=== PATIENT | female | born 1980 | race Caucasian/White ===

== ENCOUNTER 2020-10-03 00:25 | Emergency (ER) | payer OTHER, SELFPAY ==
[2020-10-03 00:34] VITALS: BP 128/88; PULSE 92; RESP 18; TEMP 37; O2SAT 98
--- NOTE | 2020-10-03 01:10 | DI.RAD.S_ITS ---
PROCEDURE: XR CHEST 2V INDICATIONS: cough TECHNIQUE: 2 views of the chest were acquired. COMPARISON: [facility], , CHEST 2 VIEW, 01/14/2011, 9:58. FINDINGS: Surgical changes and devices: None. Lungs and pleura: Lungs are clear. No pleural effusions or pneumothorax. Mediastinum: Mediastinal contours are normal. Heart size is normal. Bones and chest wall: No suspicious bony abnormalities. Soft tissues appear unremarkable. IMPRESSION: No acute disease. Dictated by: Neri Gonzalez M.D. on 10/03/2020 at 8:32 Approved by: Neri Gonzalez M.D. on 10/03/2020 at 8:34
--- NOTE | 2020-10-03 01:11 | PC.NURSE ---
after discussing plan of care with pt after triage pt states she would like to move forward with the discussed chest xr but would like to decline further testing r/t concern for cost
[2020-10-03 04:51] LABS: COVID19 -Nasal RAPID Negative (Negative)
--- NOTE | 2020-10-03 05:00 | ED.GENADULT ---
HPI - General Adult General Chief complaint: Shortness of Breath/Dyspnea Stated complaint: thinks pneumonia/coughing Time Seen by Provider: 10/03/20 03:25 Source: patient Mode of arrival: Ambulatory History of Present Illness HPI narrative: 40-year-old woman with no significant medical history presents with 3 days of cough, chest pressure, shortness of breath when lying flat, lightheaded she has had slight diarrhea for 2 days mild nausea no appetite but describes no fevers. She does not have a history of asthma and does not report wheezing. No significant history of seasonal allergies. She does not describe a change to taste or smell nor palpitations or lower extremity edema. Related Data Allergies Allergy/AdvReac Type Severity Reaction Status Date / Time No Known Drug Allergies Allergy Unverified 07/25/20 12:06 Review of Systems Review of Systems Narrative: Remainder of complete review of systems is otherwise unremarkable except for that included in the HPI. Patient History Surgical History Status post appendectomy Status post cholecystectomy Status post loop electrosurgical excision procedure (LEEP) of cervix (05/12/14) Status post tonsillectomy and adenoidectomy Status post tubal ligation Family History Child ADHD (attention deficit hyperactivity disorder) Mother Hypertension Social History Smoking Status: Former smoker Smoking Status: Former smoker Exam Narrative Exam Narrative: General: Healthy appearing, in no acute distress. Able to give a complete and coherent history. Well-nourished well-developed HEENT: Moist mucous membranes, normal sclera with reactive pupils, Neck: No JVD, supple Respiratory: Lungs are clear to auscultation, no wheezing no rales no rhonchi. Full and symmetrical air movement Cardiac: Regular rate and rhythm no murmurs no bruits Abdomen: Soft, nontender, good bowel tones, no flank pain Skin: Warm and dry, no rashes Neurologic: Grossly neurologically intact with no obvious asymmetries or abnormalities Extremities: No trauma, well perfused Psych: Cooperative, appropriate insight and affect Initial Vital Signs Initial Vital Signs: Vital Signs Temperature 98.6 F 10/03/20 00:34 Pulse Rate 92 H 10/03/20 00:34 Respiratory Rate 18 10/03/20 00:34 Blood Pressure 128/88 10/03/20 00:34 Pulse Oximetry 98 10/03/20 00:34 Course Orders Ordered: ED Orders 10/03/20 01:10 Chest [XR chest 2V] Stat 10/03/20 03:40 COVID19 -Nasal swab/Pre-Proc Stat Vital Signs Vital signs: Vital Signs - 8 hr 10/03/20 00:34 Temperature 98.6 F Pulse Rate 92 H Respiratory Rate 18 Blood Pressure 128/88 Pulse Oximetry 98 Medical Decision Making Medical Records Medical records reviewed: Yes I reviewed the patient's medical records. Lab Data Lab results reviewed: Yes I reviewed the patient's lab results. Labs: Lab Results 10/03/20 Range/Units 03:40 SARS-CoV-2 (PCR) Negative (Negative) MDM Narrative Medical decision making narrative: 40-year-old otherwise healthy patient with 3 days cough and chest tightness. She specifically requested that no blood work be done but she did want to proceed with a chest x-ray. Her clinical exam was reassuring. Based on her symptoms we did decide to do a COVID test that did return negative. At this point there is no evidence of bacterial infection, or COVID. She has no clinical signs or symptoms of congestive heart failure or pulmonary embolus. At this point most likely diagnosis is either viral syndrome or seasonal allergy. She is encouraged to return if symptoms worsen. She is safe for home discharge at this time Discharge Plan Departure Patient Disposition: Home Clinical Impression: Chest tightness Instructions: DI for Viral Upper Respiratory Infection -- Adult Activity Restrictions/Additional Instructions: Thank you for coming in today Based on your clinical exam, COVID test and chest x-ray you do not have bacterial pneumonia and you do not have COVID pneumonia. Your symptoms may be related to allergies but they may also be related to another virus. Please allow your body some time to heal itself. If you have worsening symptoms, develop a productive cough or significant fevers or feeling short of breath, please feel free to return to the ER for further evaluation. I hope you feel better Referrals: Miscellaneous,[facility] [Primary Care Provider] -
[2020-10-03 05:03] VITALS: BP 117/89; PULSE 80; RESP 18; O2SAT 99
== END 2020-10-03 05:03 | disposition home or self-care (01) ==
PROVIDERS: Emergency Provider Emergency Medicine
DX: R07.89 Other chest pain (principal); R06.02 Shortness of breath; R19.7 Diarrhea, unspecified; R11.0 Nausea; Z20.822 Contact with and (suspected) exposure to COVID-19
CPT/HCPCS: 71046; 87635; 99283; C9803